=== PATIENT | male | born 1985 ===

== ENCOUNTER 2017-11-27 22:23 | Emergency (ER) | payer SELFPAY ==
[2017-11-27 23:07] VITALS: BP 145/72; PULSE 99; TEMP 98.4; O2SAT 100
--- NOTE | 2017-11-28 | C.PDOC ---
History Of Present Illness 32yo male, comes to ER for evaluation of left lower gum/jaw pain. Patient states he has a left posterior molar abscess x 3 weeks and due to his work schedule, he has not been able to follow up with a dentist. Patient states he has been treated with a course of antibiotics in the past but presents today due to persistent pain. He denies any fever, throat or tongue swelling and offers no other medical complaints. Time Seen by Provider: 11/27/17 23:10 Chief Complaint (Nursing): Dental Pain History Per: Patient History/Exam Limitations: no limitations Onset/Duration Of Symptoms: Persistent Current Symptoms Are (Timing): Still Present Quality: Positive for: "Pain" Past Medical History Reviewed: Historical Data, Nursing Documentation, Vital Signs Vital Signs: Last Vital Signs Temp 98.4 F 11/27/17 23:02 Pulse 99 H 11/27/17 23:02 Resp 20 11/28/17 00:11 BP 145/72 11/27/17 23:02 Pulse Ox 100 11/28/17 02:36 - Medical History PMH: No Chronic Diseases Surgical History: No Surg Hx Family History: States: No Known Family Hx - Social History Hx Alcohol Use: Yes Hx Substance Use: Yes - Immunization History Hx Tetanus Toxoid Vaccination: No Hx Influenza Vaccination: No Hx Pneumococcal Vaccination: No Review Of Systems Constitutional: Negative for: Fever, Chills ENT: Positive for: Other (dental pain). Negative for: Throat Pain, Throat Swelling Gastrointestinal: Negative for: Vomiting Physical Exam - Physical Exam Appears: Non-toxic Skin: Warm, Dry Head: Normacephalic, No Swelling (facial ) Eye(s): bilateral: Normal Inspection Oral Mucosa: Moist Tongue: Normal Appearing, No Swelling Lips: Normal Appearing, No Swelling Gingiva: Erythema, Tender (tenderness and swelling to left posterior gingiva. + white exudates noted to area. no fluctuant mass noted.), No Abscess Throat: Normal, No Erythema, No Exudate, No Drooling Neck: Normal ROM, Supple, No Other (swelling) Chest: Symmetrical Cardiovascular: Rhythm Regular Respiratory: Normal Breath Sounds Neurological/Psych: Oriented x3 ED Course And Treatment O2 Sat by Pulse Oximetry: 100 (RA) Pulse Ox Interpretation: Normal Progress Note: Patient given Motrin and PennVK 500mg PO. Patient instructed to take medications as prescribed and informed on strict follow up with dentist. Disposition Counseled Patient/Family Regarding: Diagnosis, Need For Followup, Rx Given - Disposition Referrals: Dental office, dentist [Other] Disposition: HOME/ ROUTINE Disposition Time: 23:57 Condition: STABLE Additional Instructions: Please follow up with a dentist at your earliest convenience. Take meds as directed Return ti ER if worse Prescriptions: Ibuprofen [Motrin Tab] 800 mg PO QID #20 tab Penicillin VK [Penicillin VK Tab] 2 tab PO BID #28 tab Instructions: Tooth Abscess (DC) Forms: [employer] (Greenlandic) - Clinical Impression Clinical Impression: Dental abscess - PA / [employer] / Resident Statement MD/DO has reviewed & agrees with the documentation as recorded. - Scribe Statement The provider has reviewed the documentation as recorded by the Gisell Seals Provider Attestation: All medical record entries made by the Gisell were at my direction and personally dictated by me. I have reviewed the chart and agree that the record accurately reflects my personal performance of the history, physical exam, medical decision making, and the department course for this patient. I have also personally directed, reviewed, and agree with the discharge instructions and disposition.
[2017-11-28 01:03] VITALS: RESP 20
== END 2017-11-27 23:57 | disposition home or self-care (01) ==
LOC: C.ER 22:23
DX: K04.7 Periapical abscess without sinus (principal)